=== PATIENT | female | born 1945 | race Caucasian/White ===

== ENCOUNTER 2024-06-19 08:35 | Day surgery (SDC) | payer MEDICARE, SELFPAY ==
[2024-06-15 13:15] VITALS: BMI 28.1
--- NOTE | 2024-06-16 09:30 | HO.ANESPROP2 ---
Documented by User: Ludivina Cleveland NP 06/16/24 09:30 HPI - Anesthesia Eval Consult details Narrative: 79yo F for Colonoscopy PMFSH Past Medical History Medical History IBS (irritable bowel syndrome) Asthma Gout Raynaud's syndrome Acne rosacea Glaucoma Hyperlipidemia HTN (hypertension) Surgical History Surgical History Hx of bilateral cataract extraction Hx of removal of cyst H/O colonoscopy Social History Social History Are you a primary small animal caretaker to a significant other at home: No Do you presently have visiting nurse or other home services: No Patient Tobacco Use Status: Former Tobacco user Have you been hit, kicked, punched, or otherwise hurt by someone within the past year? If so, by whom?: No Are you DNR?: No Advance Directives: No Advance Directives Information Provided: Yes Recently lost weight without trying: No Nutrition Risks: No Nutritional Risk Meds Allergies Allergy/AdvReac Type Severity Reaction Status Date / Time aspirin Allergy Unknown watery, Verified 06/19/24 09:12 itchy eyes, wheezing NSAIDS Allergy Unknown watery, Uncoded 06/19/24 09:12 itchy eyes, wheezing yellow dye #5 Allergy Unknown watery Uncoded 06/19/24 09:12 itchy eyes, wheezing Home Medications ?Medication ?Instructions ?Recorded ?Confirmed ?Last Taken ?Type allopurinol 100 mg tablet 100 mg PO DAILY 06/15/24 06/15/24 Unknown History amlodipine 10 mg tablet 5 mg PO DAILY 06/15/24 06/15/24 Unknown History budesonide-formoterol HFA 80 1 inh inhalation Q4-6H PRN 06/15/24 06/15/24 Unknown History mcg-4.5 mcg/actuation aerosol Shortness Of Breath Or Wheezing inhaler (Symbicort) cetirizine 10 mg tablet 10 mg PO DAILY 06/15/24 06/15/24 Unknown History cholecalciferol (vitamin D3) 25 25 mcg PO DAILY 06/15/24 06/15/24 Unknown History mcg (1,000 unit) capsule (Vitamin D3) fluticasone propionate 50 1 spray intranasal DAILY 06/15/24 06/15/24 Unknown History mcg/actuation nasal spray,suspension hydrocodone bitartrate 10 mg 10 mg PO Q12H PRN Pain 06/15/24 06/15/24 Unknown History capsule, oral only, extended rel 12 hr latanoprost 0.005 % eye drops 1 drp ophthalmic (eye) QPM 06/15/24 06/15/24 Unknown History levothyroxine 50 mcg tablet 50 mcg PO DAILY 06/15/24 06/15/24 Unknown History methylcellulose (laxative) 500 mg 2,000 mg PO DAILY PRN Constipation 06/15/24 06/15/24 Unknown History tablet (Citrucel) metronidazole 0.75 % topical cream 1 appl topical BID PRN Skin 06/15/24 06/15/24 Unknown History Irritation simvastatin 20 mg tablet 20 mg PO BEDTIME 06/15/24 06/15/24 Unknown History timolol maleate 0.5 % eye drops 1 drp ophthalmic (eye) BID 06/15/24 06/15/24 Unknown History valsartan 160 mg tablet 160 mg PO DAILY 06/15/24 06/15/24 06/19/24 History Exam Height,Weight and Vital Signs: Height 5 ft 4 in Weight 74.389 kg Assessment and Plan Assessment Anesthesia Assessment: Chart Reviewed Documented by User: Nedra Sanchez MD 06/19/24 10:37 [facility] Past Medical History Medical History IBS (irritable bowel syndrome) Asthma Gout Raynaud's syndrome Acne rosacea Glaucoma Hyperlipidemia HTN (hypertension) Family History Family history of problems with anesthesia: No Surgical History Surgical History Hx of bilateral cataract extraction Hx of removal of cyst H/O colonoscopy History of Problems with Anesthesia: No Social History Social History Are you a primary small animal caretaker to a significant other at home: No Do you presently have visiting nurse or other home services: No Patient Tobacco Use Status: Former Tobacco user Have you been hit, kicked, punched, or otherwise hurt by someone within the past year? If so, by whom?: No Are you DNR?: No Advance Directives: No Advance Directives Information Provided: Yes Recently lost weight without trying: No Nutrition Risks: No Nutritional Risk Meds Allergies Allergy/AdvReac Type Severity Reaction Status Date / Time aspirin Allergy Unknown watery, Verified 06/19/24 09:12 itchy eyes, wheezing NSAIDS Allergy Unknown watery, Uncoded 06/19/24 09:12 itchy eyes, wheezing yellow dye #5 Allergy Unknown watery Uncoded 06/19/24 09:12 itchy eyes, wheezing Home Medications ?Medication ?Instructions ?Recorded ?Confirmed ?Last Taken ?Type allopurinol 100 mg tablet 100 mg PO DAILY 06/15/24 06/15/24 Unknown History amlodipine 10 mg tablet 5 mg PO DAILY 06/15/24 06/15/24 Unknown History budesonide-formoterol HFA 80 1 inh inhalation Q4-6H PRN 06/15/24 06/15/24 Unknown History mcg-4.5 mcg/actuation aerosol Shortness Of Breath Or Wheezing inhaler (Symbicort) cetirizine 10 mg tablet 10 mg PO DAILY 06/15/24 06/15/24 Unknown History cholecalciferol (vitamin D3) 25 25 mcg PO DAILY 06/15/24 06/15/24 Unknown History mcg (1,000 unit) capsule (Vitamin D3) fluticasone propionate 50 1 spray intranasal DAILY 06/15/24 06/15/24 Unknown History mcg/actuation nasal spray,suspension hydrocodone bitartrate 10 mg 10 mg PO Q12H PRN Pain 06/15/24 06/15/24 Unknown History capsule, oral only, extended rel 12 hr latanoprost 0.005 % eye drops 1 drp ophthalmic (eye) QPM 06/15/24 06/15/24 Unknown History levothyroxine 50 mcg tablet 50 mcg PO DAILY 06/15/24 06/15/24 Unknown History methylcellulose (laxative) 500 mg 2,000 mg PO DAILY PRN Constipation 06/15/24 06/15/24 Unknown History tablet (Citrucel) metronidazole 0.75 % topical cream 1 appl topical BID PRN Skin 06/15/24 06/15/24 Unknown History Irritation simvastatin 20 mg tablet 20 mg PO BEDTIME 06/15/24 06/15/24 Unknown History timolol maleate 0.5 % eye drops 1 drp ophthalmic (eye) BID 06/15/24 06/15/24 Unknown History valsartan 160 mg tablet 160 mg PO DAILY 06/15/24 06/15/24 06/19/24 History Exam Airway Mallampati Class: II TM Dist: >3cm Neck ROM: Full Heart: rrrt Lungs: cta Assessment and Plan Assessment Anesthesia Assessment: Anesthesia Plan Discussed Final Anesthetic Review Family History of Problems with Anesthesia: No History of Problems with Anesthesia: No NPO: Yes ASA Class: III Final Preanesthetic Review: No Changes in Pt Med Stat, Meds/Allgs Chart Reviewed, Consent Obtained/Reviewed and Anes Risks/Benef Reviewed Patient Risk: Intermediate Procedure Risk: Low Anesthetic Plan Anesthetic Plan: MAC: Disposition: Standard PACU
--- OUTSIDE RECORDS SUMMARY | 2024-06-19 08:40 | XMS_ITS | Continuity of Care Document ---
Author Organization [facility] Fady lt Address [address] [place] [address]- Care Team Providers Care Vessel Engineer Name Role Phone Shauna FUENTES, Nicolas Sawyer Primary Care Physician [phone] Encounter [facility] Date(s): 04/19/24 - 05/19/[address] [facility] Adult [address] [place] [address]- Encounter Type: Triage Allergies, Adverse Reactions, Alerts Substance Criticality Severity Reaction Reaction Severity Status aspirin Active NSAIDs 1, 2 Active 1ichy congesdted wheezing 2itchy/watery eyes nasal congestion Immunizations Given and Recorded Vaccine Date Status Refusal Reason SARS-CoV-2 mRNA ([id number]) vax 10/13/21 Recorded SARS-CoV-2 (COVID-19) mRNA BNT-162b2 vac 04/25/21 Recorded SARS-CoV-2 (COVID-19) mRNA BNT-162b2 vac 09/19/20 Recorded SARS-CoV-2 (COVID-19) mRNA BNT-162b2 vac 08/29/20 Recorded influenza virus vaccine, inactivated 03/24/21 Faisal rded influenza virus vaccine, inactivated 04/04/20 Give n influenza virus vaccine, inactivated 1 04/28/19 Gi moriah influenza virus vaccine, inactivated 03/23/17 Faisal rded influenza virus vaccine, inactivated 04/07/15 Faisal rded zoster vaccine, inactivated 08/31/18 Recorded zoster vaccine, inactivated 06/03/18 Recorded Influenza Virus Vaccine (oldterm) 04/06/18 Recorde d pneumococcal 23-valent vaccine 07/05/14 Recorded pneumococcal 13-valent vaccine 07/05/13 Recorded 1Result Comment: [id number] Medications allopurinol 100 mg oral tablet 100 mg, 1, tablet, By Mouth, Daily, # 30 tablet, Refills 0, Maintenance, 12/16/20 9:00:00 AM EDT, Partial fill upon patient request if the prescription is for a schedule II opioid drug. Start Date: 12/16/20 Status: Ordered Quantity: 30.0 Unit: tablet Repeat number: 1 amLODIPine 10 mg oral tablet 1 tablet, By Mouth, Daily at bedtime, # 90 tablet, 3 Refills, Maintenance, 12/31/23 6:24:00 AM EDT, [facility], 159.2, cm, 11/10/23 12:28:00 EDT, Height Start Date: 12/31/23 Status: Ordered Quantity: 90.0 Unit: tablet Repeat number: 4 Flonase 50 mcg/inh nasal spray 2 sprays, Nares, Both, Daily in AM, # 3 each, 3 Refills, Maintenance, 05/30/19 2:46:44 PM EST, Nasal [place], [facility], 2 sprays Nares, Both Daily in AM,x90 days Start Date: 05/30/19 Stop Date: 05/24/20 Status: Ordered Quantity: 3.0 Unit: each Repeat number: 4 latanoprost 0.005% ophthalmic solution 1 drops, Eyes, Both, Daily at bedtime, # 3 mL, 0 Refills, Maintenance, 10/18/18 10:58:05 AM EDT, Ophth Solution Start Date: 10/18/18 Status: Ordered Quantity: 3.0 Unit: mL Repeat number: 1 levothyroxine 0.05 mg oral tablet 1 tablet, By Mouth, Daily, # 90 tablet, 3 Refills, 08/09/23 1:49:00 PM EST, [facility], 159.2, cm, 08/09/23 13:24:00 EST, Height Start Date: 08/09/23 Status: Ordered Quantity: 90.0 Unit: tablet Repeat number: 4 metroNIDAZOLE 0.75% topical cream 1 applicator, Topically, 2 times a day, # 45 Gm, 3 Refills, Maintenance, 10/13/19 11:39:14 AM EDT, Cream, [facility], 1 applicator Topically 2 times a day,x90 days Start Date: 10/13/19 Stop Date: 10/07/20 Status: Ordered Quantity: 45.0 Unit: g Repeat number: 4 simvastatin 20 mg oral tablet 1, tablet, By Mouth, Daily at bedtime, # 90 tablet, Refills 3, Tot. Refills 3, 08/09/23 1:49:00 PM EST, Route to Pharmacy Electronically, [facility], 159.2, cm, 08/09/23 13:24:00 EST, Height Start Date: 08/09/23 Status: Ordered Quantity: 90.0 Unit: tablet Repeat number: 4 Timolol Maleate (Eqv-Timoptic) 0.5% ophthalmic solution 0 Refills, Maintenance, 07/08/20 12:43:00 PM EST, Partial fill upon patient request if the prescription is for a schedule II opioid drug. Start Date: 07/08/20 Status: Ordered Repeat number: 1 valsartan 160 mg oral tablet 1, tablet, By Mouth, Daily, # 90 tablet, Refills 3, Tot. Refills 3, 08/09/23 1:48:00 PM EST, Route toPharmacy Electronically, [facility], 159.2, cm, 08/09/23 13:24:00 EST, Height Start Date: 08/09/23 Status: Ordered Quantity: 90.0 Unit: tablet Repeat number: 4 Vitamin D3 1000 intl units oral capsule 1 capsule = 25 mcg, By Mouth, Daily, 0 Refills, Maintenance, 02/05/22 10:56:00 AM EDT, Partial fill upon patient request if the prescription is for a schedule II opioid drug. Start Date: 02/05/22 Status: Ordered Repeat number: 1 Problem List Condition Confirmation Course Effective Dates Status Health Status Informant Chronic rhinitis Confirmed Active Sigmoid diverticulosis colonoscopy Confirmed Active Glaucoma Confirmed Active Gout, chronic/rheumatology Confirmed 09/27/20 Active Hypercalcemia normal 24 hr urine calcium/PER endocrinology ? HYPERPARATHYROIDISM Confirmed Active Hyperlipidemia Confirmed Active Hypertension Confirmed Active Hypothyroid Confirmed Active Impaired fasting glucose Confirmed Active IBS (irritable bowel syndrome) Confirmed Active Mild persistent stable asthma high eos Confirmed Active Osteoarthritis Confirmed Active Skin photosensitivity Confirmed Active Post-nasal drip Confirmed Active Raynaud disease Confirmed Active Rosacea Confirmed Active Social History Social History Type Response Smoking Status Former smoker, quit more than 30 days ago; Other: SMOK[employer]GE; entered on: 02/22/20 Sex Sex Representation Female (finding) Patient Care team information Care Team Personnel Name: Nicolas Villatoro MD Position: [facility] Physician - Primary Care Member Role: PCP Address: [address] [place] [address]- Telecom: Care Team Related Persons Name: JOHNNIE MISHRA Insurance Providers Guarantor name: RANJANA MISHRA Health Plan Information #: 1 Payer: MEDICARE PART B OUTPT Member Number: NA Policy Number: NA Group Number: NA Health Plan Information #: 2 Payer: MEDEX Member Number: NA Policy Number: NA Group Number: NA
--- OUTSIDE RECORDS SUMMARY | 2024-06-19 08:40 | XMS_ITS | Continuity of Care Document ---
Author Organization [facility] Fady lt Address [address] [place] [address]- Care Team Providers Care Metal Building Assembler Name Role Phone Nicolas Villatoro MD Primary Care Physician [phone] [id number] - [facility]29[facility] Adult [address] [place] [address]- Attending Physician: Nicolas Villatoro MD Encounter Type: Office Visit Allergies, Adverse Reactions, Alerts Substance Criticality Severity Reaction Reaction Severity Status aspirin Active NSAIDs 1, 2 Active 1ichy congesdted wheezing 2itchy/watery eyes nasal congestion Immunizations Given and Recorded Vaccine Date Status Refusal Reason SARS-CoV-2 mRNA ([id number]) vax 10/13/21 Recorded SARS-CoV-2 (COVID-19) mRNA BNT-162b2 [...] pneumococcal 13-valent vaccine 07/05/13 Recorded 1Result Comment: [id number] Medications allopurinol 100 mg oral tablet 100 [...] 3 Refills, Maintenance, 12/31/23 6:24:00 AM EDT, [facility], 159.2, cm, 11/10/23 12:28:00 EDT, Height Start Date: 12/31/23 Status: Ordered Quantity: 90.0 Unit: tablet Repeat number: 4 Flonase 50 mcg/inh nasal spray 2 sprays, Nares, Both, Daily in AM, # 3 each, 3 Refills, Maintenance, 05/30/19 2:46:44 PM EST, Nasal [place], [facility], 2 sprays Nares, Both Daily in [...] tablet, 3 Refills, 08/09/23 1:49:00 PM EST, [facility], 159.2, cm, 08/09/23 13:24:00 EST, Height Start Date: 08/09/23 Status: Ordered Quantity: 90.0 Unit: tablet Repeat number: 4 metroNIDAZOLE 0.75% topical cream 1 applicator, Topically, 2 times a day, # 45 Gm, 3 Refills, Maintenance, 10/13/19 11:39:14 AM EDT, Cream, [facility], 1 applicator Topically 2 times a day,x90 days Start Date: 10/13/19 Stop Date: 10/07/20 Status: Ordered Quantity: 45.0 Unit: g Repeat number: 4 simvastatin 20 mg oral tablet 1, tablet, By Mouth, Daily at bedtime, # 90 tablet, Refills 3, Tot. Refills 3, 08/09/23 1:49:00 PM EST, Route to Pharmacy Electronically, [facility], 159.2, cm, 08/09/23 13:24:00 EST, Height [...] 08/09/23 1:48:00 PM EST, Route toPharmacy Electronically, [facility], 159.2, cm, 08/09/23 13:24:00 EST, Height [...] Raynaud disease Confirmed Active Rosacea Confirmed Active Vital Signs Most recent to oldest [Reference Range]: 1 2 Height 159.2 cm (05/22/24 4:51 PM) 159.2 cm (05/22/24 4:46 PM) Weight 75.0 kg (05/22/24 4:46 PM) Oxygen Saturation [94-100 %] 97 % (05/22/24 4:46 PM) Pulse Rate [55-90 bpm] 70 bpm (05/22/24 4:46 PM) Body Mass Index [18.5-24.99 kg/m2] 29.59 kg/m2 *H* (05/22/24 4:46 PM) Blood Pressure [90-138/55-84 mm Hg] 139/ 71mm Hg *H* (05/22/24 4:51 PM) 149/65mm Hg *H* (05/22/24 4:46 PM) Mode of Delivery (Oxygen) Room air (05/22/24 4:46 PM) Blood pressure sites Arm, left (05/22/24 4:51 PM) Arm, left (05/22/24 4:46 PM) Weight Obtained Via Standing scale (05/22/24 4:46 PM) Social History Social History Type Response Smoking Status Former smoker, quit more than 30 days ago; Other: SMOKED [employer]LEGE; entered on: 02/22/20 Sex Sex Representation Female (finding) Patient Care team information Care Team Personnel Name: Shauna FUENTES, Nicolas Sawyer Position: [facility] Physician - Primary Care Member Role: PCP Address: [address] [place] [id number] Telecom: Care Team Related Persons Name: JOHNNIE MISHRA Insurance Providers Guarantor name: RANJANA MISHRA Health Plan Information #: 2 Payer: MEDEX Member Number: [id number] Policy Number: NA Group Number: NA Health Plan Information #: 1 Payer: MEDICARE PART B OUTPT Member Number: [id number] Policy Number: NA Group Number: NA
--- OUTSIDE RECORDS SUMMARY | 2024-06-19 08:40 | XMS_ITS ---
Author Organization [facility] Address [address] [place] [id number] Care Team Providers Care Fish Hatchery Inspector Name Role Phone Nicolas Villatoro Primary Care Provider Royer Christopher Unavailable [phone] ALLERGIES Allergen (clinical drug ingredient) Drug/Non Drug Allergy documented on EMR Reaction Allergy Type Onset Date Status ibuprofen Ibuprofen Unknown Drug Allergy Active aspirin Aspirin Unknown Drug Allergy Active #5 yellow dye (uncoded) Unknown Allergy Active Non-steroidal anti-inflammatory agent (FN) NSAIDS (uncoded) Unknown Allergy Active REASON FOR VISIT Patient presents today for a colon screening, ibs MEDICATIONS Medication SIG (Take, Route, Frequency, Duration) Notes Start Date End Date Status Levothyroxine Sodium 50 MCG 1 capsule Orally Once a day Active Prednisone 40 1 tab Oral as needed Not-Taking metroNIDAZOLE 0.75 % 1 application to affected area Externally prn Active Citrucel 500 MG 4 tablets as needed Orally prn Active amLODIPine Besylate 5 MG 1 tablet Orally Once a day Active Flonase 50 MCG/ACT 1 spray in each nostril Nasally Once a day Active Fluocinolone Acetonide 0.01 % 5 drops into affected ear Otic Twice a day/prn Active Timolol Maleate 0.5 % 1 tablet with food Ophthalmic Twice a day Active Valsartan 160 MG 1 tablet Orally Once a day for 30 day(s) Active Vitamin D (Cholecalciferol) 25 MCG (1000 UT) 1 capsule Orally Once a day for 30 day(s) Active Latanoprost 0.005 % 1 drop into affected eye in the evening Ophthalmic Once a day Active Simvastatin 20 MG 1 tablet in the evening Orally Once a day Active Allopurinol 100 MG 1 tablet Orally Once a day for 30 day(s) Active HYDROcodone Bitartrate ER 10 MG 1 capsule Orally every 12 hrs as needed Active Cetirizine HCl 10 MG 1 tablet Orally Onc e a day for 30 day(s) Active Symbicort 80-4.5 MCG/ACT 1 puff as needed Inhalation every 4 hrs Active PROBLEMS Problem Type ICD Code Onset Dates Problem Status W/U Status Risk SNOMED Code Notes Problem Irritable bowel syndrome with diarrhea (K58.0) Active confirmed Irritable bowel syndrome with diarrhea (382482290) VITAL SIGNS BMI 28.21 kg/m2 03/08/2024 Blood pressure systolic 000 mm Hg 03/08/20 24 Blood pressure diastolic 00 mm Hg 024 Height 64 in 03/08/2024 Temperature 97.3 degrees Fahrenheit 03/08/20 24 Weight 164 lb 6 oz lbs 03/08/2024 Encounters Encounter Location Date Provider Diagnosis [facility] [address] [facility] [address] [place] [address] 03/08/2024 Royer Lino History of adenomato us polyp of colon Z86.010 ; Irritable bowel syndrome with diarrhea K58.0 and Encounter for screening for malignant neoplasm of colon Z12.11 ASSESSMENTS Encounter Date Diagnosis Assessment Notes Treatment Notes Treatment Clinical Notes 03/08/2024 History of adenomatous polyp of colon (ICD-10 - Z86.010) 03/08/2024 Irritable bowel syndrome with diarrhea (ICD-10 - K58.0) Continue Citrucel once or twice a day and watch the diet as far as the Irritable Bowel Syndome is concerned. Use over the counter Imodium as needed for diarrhea 03/08/2024 Encounter for screening for malignant neoplasm of colon (ICD-10 - Z12.11) PLAN OF TREATMENT Treatment Notes Assessment Notes Irritable bowel syndrome with diarrhea Continue Citrucel once or twice a day and watch the diet as far as the Irritable Bowel Syndome is concerned. Use over the counter Imodium as needed for diarrhea Future Test Test Name Order Date COLONOSCOPY 03/08/2024 Next Appt Details Follow Up: prn, Reason: Provider Name:Royer Lino , 06/19/2024 10:30:00 AM, [address] [place] [address] , [place], [place], [phone], Progress Notes * Examination Category Sub-Category Detail Notes General Examination GENERAL APPEARANCE: pleasant , well nourished, well developed, in no acute distress HEAD: EYES: sclera non-icteric EARS: NOSE: THROAT: NECK/THYROID: no cervical lymphade nopathy, neck supple HEART: S1, S2 normal CHEST: LUNGS: clear to auscultatio n bilaterally ABDOMEN: normal bowel sounds, no guarding or rigidity, no guarding or rigidity, no masses palpable, soft, nontender, nondistended NEUROLOGIC: alert and oriented SKIN: nonjaundiced, no spi heath angiomata EXTREMITIES: no edema PERIPHERAL PULSES: BACK: BREASTS: MUSCULOSKELETAL: MALE GENITOURINARY: LYMPH NODES: RECTAL EXAM: FEMALE GENITOURINARY: ORAL CAVITY: mucosa moist
--- OUTSIDE RECORDS SUMMARY | 2024-06-19 08:40 | XMS_ITS ---
Author Organization [facility] Address [address] [place] [address] Care Team Providers Care Appraiser Art Name Role Phone Nicolas Villatoro Primary Care Provider Royer Chritsopher [phone] REASON FOR VISIT screening,hx polyps Encounters Encounter Location Date Provider Diagnosis [facility] Outpatient [address] [place] [id number] 06/19/2024 Royer Lino PLAN OF TREATMENT Next Appt Details Provider Name:Royer Lino , 06/19/2024 10:30:00 AM, [address] [place] [address], [phone],
--- OUTSIDE RECORDS SUMMARY | 2024-06-19 08:40 | XMS_ITS | Continuity of Care Document ---
Author Organization [facility] Address [address] [place] [address]- Care Team Providers Care Director Dietetics Department Name Role Phone Shauna FUENTES, Nicolas Sawyer Primary Care Physician Encounter [facility] Date(s): 05/15/24 - 06/14/24 [facility] [address] [place] [id number] Encounter Type: Triage Allergies, Adverse Reactions, Alerts Substance Criticality Severity Reaction Reaction Severity Status aspirin Active NSAIDs 1, 2 Active 1ichy congesdted wheezing 2itchy/watery eyes nasal congestion Immunizations Given and Recorded Vaccine Date Status Refusal Reason SARS-CoV-2 mRNA ([id number]-bfut-umrhc) vax 10/13/21 Recorded SARS-CoV-2 (COVID-19) mRNA BNT-162b2 [...] pneumococcal 13-valent vaccine 07/05/13 Recorded 1Result Comment: [id number] Medications allopurinol 100 mg oral tablet 100 [...] 3 Refills, Maintenance, 12/31/23 6:24:00 AM EDT, [facility], 159.2, cm, 11/10/23 12:28:00 EDT, Height Start Date: 12/31/23 Status: Ordered Quantity: 90.0 Unit: tablet Repeat number: 4 Flonase 50 mcg/inh nasal spray 2 sprays, Nares, Both, Daily in AM, # 3 each, 3 Refills, Maintenance, 05/30/19 2:46:44 PM EST, Nasal [place], [facility], 2 sprays Nares, Both Daily in [...] tablet, 3 Refills, 08/09/23 1:49:00 PM EST, [facility], 159.2, cm, 08/09/23 13:24:00 EST, Height Start Date: 08/09/23 Status: Ordered Quantity: 90.0 Unit: tablet Repeat number: 4 metroNIDAZOLE 0.75% topical cream 1 applicator, Topically, 2 times a day, # 45 Gm, 3 Refills, Maintenance, 10/13/19 11:39:14 AM EDT, Cream, [facility], 1 applicator Topically 2 times a day,x90 days Start Date: 10/13/19 Stop Date: 10/07/20 Status: Ordered Quantity: 45.0 Unit: g Repeat number: 4 simvastatin 20 mg oral tablet 1, tablet, By Mouth, Daily at bedtime, # 90 tablet, Refills 3, Tot. Refills 3, 08/09/23 1:49:00 PM EST, Route to Pharmacy Electronically, [facility], 159.2, cm, 08/09/23 13:24:00 EST, Height [...] 08/09/23 1:48:00 PM EST, Route toPharmacy Electronically, [facility], 159.2, cm, 08/09/23 13:24:00 EST, Height [...] Team Personnel Name: Nicolas Villatoro MD Position: [facility] Physician - Primary Care Member Role: PCP Address: [address] [place] [address] Telecom: Care Team Related Persons Name: JOHNNIE MISHRA Insurance Providers Guarantor name: RANJANA MISHRA Health Plan Information #: 1 Payer: MEDICARE PART B OUTPT Member Number: NA Policy Number: NA Group Number: NA Health Plan Information #: 2 Payer: MEDEX Member Number: NA Policy Number: NA Group Number: NA
--- OUTSIDE RECORDS SUMMARY | 2024-06-19 08:40 | XMS_ITS | Continuity of Care Document ---
Author Organization [facility] Address [address] [place] [id number]- Care Team Providers Care Teacher Asst Name Role Phone Shauna FUENTES, Nicolas Sawyer Primary Care Physician Encounter [facility] Date(s): 05/05/24 - 06/04/24 [facility] [address] [place] [address] Encounter Type: Triage Allergies, Adverse Reactions, Alerts Substance Criticality Severity Reaction Reaction Severity Status aspirin Active NSAIDs 1, 2 Active 1ichy congesdted wheezing 2itchy/watery eyes nasal congestion Immunizations Given and Recorded Vaccine Date Status Refusal Reason SARS-CoV-2 mRNA ([id number]) vax 10/13/21 Recorded SARS-CoV-2 (COVID-19) mRNA BNT-162b2 [...] pneumococcal 13-valent vaccine 07/05/13 Recorded 1Result Comment: [id number] Medications allopurinol 100 mg oral tablet 100 [...] 3 Refills, Maintenance, 12/31/23 6:24:00 AM EDT, [facility], 159.2, cm, 11/10/23 12:28:00 EDT, Height Start Date: 12/31/23 Status: Ordered Quantity: 90.0 Unit: tablet Repeat number: 4 Flonase 50 mcg/inh nasal spray 2 sprays, Nares, Both, Daily in AM, # 3 each, 3 Refills, Maintenance, 05/30/19 2:46:44 PM EST, Nasal [place], [facility], 2 sprays Nares, Both Daily in [...] tablet, 3 Refills, 08/09/23 1:49:00 PM EST, [facility], 159.2, cm, 08/09/23 13:24:00 EST, Height Start Date: 08/09/23 Status: Ordered Quantity: 90.0 Unit: tablet Repeat number: 4 metroNIDAZOLE 0.75% topical cream 1 applicator, Topically, 2 times a day, # 45 Gm, 3 Refills, Maintenance, 10/13/19 11:39:14 AM EDT, Cream, [facility], 1 applicator Topically 2 times a day,x90 days Start Date: 10/13/19 Stop Date: 10/07/20 Status: Ordered Quantity: 45.0 Unit: g Repeat number: 4 simvastatin 20 mg oral tablet 1, tablet, By Mouth, Daily at bedtime, # 90 tablet, Refills 3, Tot. Refills 3, 08/09/23 1:49:00 PM EST, Route to Pharmacy Electronically, [facility], 159.2, cm, 08/09/23 13:24:00 EST, Height [...] 08/09/23 1:48:00 PM EST, Route toPharmacy Electronically, [facility], 159.2, cm, 08/09/23 13:24:00 EST, Height [...] Team Personnel Name: Nicolas Villatoro MD Position: [facility] Physician - Primary Care Member Role: PCP Address: [address] [place] [address]- Telecom: Care Team Related Persons Name: OJHNNIE MISHRA Insurance Providers Guarantor name: RANJANA MISHRA Health Plan Information #: 1 Payer: MEDICARE PART B OUTPT Member Number: NA Policy Number: NA Group Number: NA Health Plan Information #: 2 Payer: MEDEX Member Number: NA Policy Number: NA Group Number: NA
--- OUTSIDE RECORDS SUMMARY | 2024-06-19 08:41 | XMS_ITS | Patient Health Record ---
[facility] Address [address] [place] [address] Care Team Providers Care Plastic Production Machine Setter Name Role Phone Nicolas Villatoro MD Primary Care Provider Zak Avila Unavailable [phone] Allergies Allergen (clinical drug ingredient) Drug/Non Drug Allergy documented on EMR Reaction Allergy Type Onset Date Status yellow dye #5 (uncoded) congestion & wheezing Allergy Active ibuprofen Advil congestion & wheezing Drug Allergy Active aspirin Aspirin congestion & wheezing Drug Allergy Active nsaids congestion & wheezing Drug Allergy Active Reason For Referral No Information Medications Medication SIG (Take, Route, Frequency, Duration) Notes Start Date End Date Status Night Splint AFO - L1930 1 wear at rest for 30 days Active Allopurinol Active Valsartan Active Levothroid Active metroNIDAZOLE 0.75 % Once a day Unknown amLODIPine Besylate Active Fluocinolone Acetonide 0.01 % as needed Unknown Vitamin D Active Citrucel Unknown Symbicort Active Flonase as needed Unknown Prednisone Active Timolol Hemihydrate 0.5 % 1 drop into af fected eye Ophthalmic 2x a day Unknown Simvastatin 20 MG 1 tablet in the even ing Orally Once a day Active Latanoprost 0.005 % 1 drop into affected eye in the evening Ophthalmic Once a day Unknown Simvastatin 20 MG Orally Once a day Unknown Lisinopril 10 MG Orally Once a day Unknown Social History Tobacco Use: Social History Observation Description Date Details (start date - stop date) Former Smoker NA - NA Tobacco Use/Smoking Question Answer Notes Are you a: former smoker Alcohol Screen Question Answer Notes Did you have a drink containing alcohol in the p ast year? Yes Points 0 Interpretation Negative Tobacco use other than smoking: Question Answer Notes Are you an other tobacco user? No Problems Problem Type SNOMED Code ICD Code Onset Dates Problem Status W/U Status Risk Notes Problem Interstitial myositis (94984952) Interstitial myositis of right foot (M60.171) Active confirmed Vital Signs Height 5 ft 3 in in 07/13/2023 Weight 160 lbs 07/13/2023 BMI 28.34 kg/m2 07/13/2023 Encounters Encounter Location Date Provider Diagnosis [facility] [place] [address] [place] [address] 07/13/2023 Zak Gilbert Muscle cramp, nocturnal R25.2 and Plantar fasciitis of right foot M72.2 Assessments Encounter Date Diagnosis (ICD Code) Assessment Notes Treatment Notes Treatment Clinical Notes Section Notes 07/13/2023 Plantar fasciitis of right foot (ICD-10 - M72.2) 07/13/2023 Muscle cramp, nocturnal (ICD-10 - R25.2) Plan Of Treatment Pending Test Test Name Order Date X ray : Foot, right 3V 04/30/2023 Insurance Providers Payer Name Payer Address Payer Phone Subscriber Number Group Number Insured Name Patient Relationship to Insured Coverage Start Date Coverage End Date Medicare National [facility] [address] [facility] [address] [id number] Joanna Howard Self - patient is the insured [employer] [address] [place] [address] [phone] [id number] Joanna Howard Self - patient is the insured Medical (General) History Medical History History ICD Code Back,Hip,and Knee pain Cholesterol Glaucoma Gout High blood pressure Raynauds syndrome chronic sinusitis Measles Chicken pox Diarrhea, chronic Rosacea cyst Arthritis asthma Cataracts Mumps Surgical History Surgery Date(Month/Year) Cyst removal
--- OUTSIDE RECORDS SUMMARY | 2024-06-19 08:41 | XMS_ITS ---
Author Organization [facility] Address [address] [place] [address] Care Team Providers Care Leach Tank Tender Name Role Phone Nicolas Villatoro MD Primary Care Provider Unava Zak Ribeiro Unavailable [phone] Allergies Allergen (clinical drug ingredient) Drug/Non Drug Allergy documented on EMR Reaction Allergy Type Onset Date Status yellow dye #5 (uncoded) congestion & wheezing Allergy Active ibuprofen Advil congestion & wheezing Drug Allergy Active aspirin Aspirin congestion & wheezing Drug Allergy Active nsaids congestion & wheezing Drug Allergy Active REASON FOR VISIT Foot/Leg pain, Heel pain Medications Medication SIG (Take, Route, Frequency, Duration) Notes Start Date End Date Status metroNIDAZOLE 0.75 % Once a day Unknown Fluocinolone Acetonide 0.01 % as needed Unknown Citrucel Unknown Flonase as needed Unknown Timolol Hemihydrate 0.5 % 1 drop into af fected eye Ophthalmic 2x a day Unknown Allopurinol Active Latanoprost 0.005 % 1 drop into affected eye in the evening Ophthalmic Once a day Unknown Simvastatin 20 MG Orally Once a day Unknown Lisinopril 10 MG Orally Once a day Unknown Night Splint AFO - L1930 1 wear at rest for 30 days Active Valsartan Active Levothroid Active amLODIPine Besylate Active Vitamin D Active Symbicort Active Prednisone Active Simvastatin 20 MG 1 tablet in the even ing Orally Once a day Active Social History Tobacco Use: Social History Observation [...] Are you an other tobacco user? No Vital Signs Height 5 ft 3 in in 07/13/2023 Weight 160 lbs 07/13/2023 BMI 28.34 kg/m2 07/13/2023 Encounters Encounter Location Date Provider Diagnosis [facility] [place] [address] [place] [address] 07/13/2023 Zak Hunt Muscle cramp, nocturnal R25.2 and Plantar fasciitis of right foot M72.2 Assessments Encounter Date Diagnosis (ICD Code) Assessment Notes Treatment Notes Treatment Clinical Notes Section Notes 07/13/2023 Muscle cramp, nocturnal (ICD-10 - R25.2) 07/13/2023 Plantar fasciitis of right foot (ICD-10 - M72.2) Plan Of Treatment Next Appt Details Follow Up: prn, Reason: Progress Notes * Joanna HOWARD MDOB: 7 (78 yo F)Acc No.[id number]:07/13/2023 Progress Note Patient:?Joanna Howard Provider:?Zak Hunt DPM :1945???Age:78 Y???Sex:Female D ate:07/13/2023 Address:[address] [place] [address] Pcp:Nicolas Villatoro MD Subjective: * Chief Complaints: * ???Foot/Leg painHeel pain * HPI: ???Foot Pain:?Nature:?tightness, cramping, pulling, aching.?Location:?Foot, Leg , B/L.?Duration:?several weeks.?Onset:?sudden.?Course:?worse.?Aggrevated:?especially toward the end of the day/at rest/at night.?Heel pain:?Location:?Proximal plantar aspect of Heel, RIGHT.?Treatments:?rest/alter normal daily activity, change in shoes, Tylenol , stretching , massage , pre-fabricated orthoses , AFO-nightsplint.? * ROS:?General/Constitutional:?Nausea?denies.?Vomiting?denies.?Hunger Thirst?denies.?Loss appetite?denies.?Loss appetite?denies.?Chills?denies.?Fatigue?denies.?Fever?denies.?Night Sweats?admits.?Unexplained weight loss?denies.?Unexplained weight gain?denies.?HEENTM:?Dentures?denies.?Dizziness?denies.?Glasses/contacts?admits.?Retinopathy?de nies.?Blurred/double vision?denies.?TMJ?denies.?Discharge/drainage?denies.?Implants?denies.?Sore throat?denies.?Dental implants?denies.?Hard of hearing ?denies.?Difficulty chewing/swallowing/speaking?denies.?Nose bleeds?denies.?Sore mouth?denies.?Respiratory:?On Oxygen?denies.?Pneumonia/pleurisy?denies.?Pneumonia/pleurisy?denies.?Bronchitis? denies.?Bronchitis?denies.?Emphysema?denies.?Emphysema?denies.?Coughing?denies.? Cough blood?denies.?Shortness of breath?denies.?Wheezing?denies.?Cardiovascular:?Pacemaker?denies,?denies.?MVP?denies,?denies.?WPW?denies,?denies.?CHF?audrey es,?denies.?Heart attack?denies,?denies.?Septal defect?denies,?denies.?Rapid beat?denies,?denies.?Chest pain ?denies,?denies.?Atrial Fib.?denies,?denies.?Murmur/Palpitations?denies,?denies.?Gastrointestinal:?Hemorrhoids?denies,?denies.?Stomach/Abdominal pain?denies,?denies.?Dark blood stool?denies,?denies.?Irritable bowel ?admits,?admits.?Constipation?denies,?denies.?Diarrhea?denies,?denies.?Hematology:?Swelling?denies,?denies.?Clots?denies,?denies.?Varicose Veins?denies,?denies.?Bruising?denies,?denies.?Bleeding problem?denies,?denies.?Genitourinary:?Blood urine?denies,?denies.?Frequent/Painfu/urination/bladder control?denies,?denies.?Kidney stones?denies,?denies.?Infection (UTI)?denies,?denies.?Nephropathy?denies,?denies.?sex trans dis (STD)?denies,?denies.?Prostate?denies,?denies.?Musculoskeletal:?Hammertoes?denies,?denies.?Bunions?denies,?denies.?Back Pain?denies,?denies.?Muscle Cramps/ Resting?admits,?admits.?Muscle cramps / walking?denies,?denies.?Generalized aches and pains?denies,?denies.?Weakness?denies,?denies.?Integ.:?Milian?denies,?denies.?Scars?denies,?denies.?Corns/calluses?denies,?denies. ?Ingrown nails?denies,?denies.?Painful nails?denies,?denies.?Open Sores?denies,?denies.?Rashes?denies,?denies.?Neurologic:?Difficulty sleeping?denies,?denies.?Brain disorder?denies,?denies.?Numbness?denies,?denies.?Balance trouble?denies,?denies.?Confusion?denies,?denies.?Fainting/blackouts?denies,?den ies.?Tingling?denies,?denies.?Tremors?denies,?denies.? * Medical History:? * Surgical History:? Cyst michael yvonne * Hospitalization/Major Diagno stic Procedure:?Denies Past Hospitalization * Family History:?Mother: dece ased.?Father: .?Siblings: heart attack, diagnosed with Unspecified cerebral artery occlusion with cerebral infarction, Other malignant neoplasm of unspecified site, Diabetic - NIDDM, Unspecified essential hypertension, Unspecified heart disease.? * Social History:?Tobacco Use:?Tobacco Use/Smoking?Are you a:?former smoker ?Tobacco use other than smoking?Are you an other tobacco user??No ???Drugs/Alcohol:?Drugs?Have you used drugs other than those for medical reasons in the past 12 months??No ?Alcohol Screen?Did you have a drink containing alcohol in the past year??Yes ?Points?0 ?Interpretation?Negative ???Miscellaneous:?Caffeine: yes, decaf 2 cups. ?Children: yes. ?Exercise: walking, hiking & tennis. ?Marital status: . ?Occupation: retired teacher. * Medications:?TakingSimvastat in 20 MG Tablet 1 tablet in the evening Orally Once a dayPrednisone Symbicort Vitamin D amLODIPine Besylate Levothroid Valsartan Allopurinol Night Splint AFO - L1930 1 wear at restTaking Simvastatin 20 MG Tablet 1 tablet in the evening Orally Once a dayTaking Prednisone Taking Symbicort Taking Vitamin D Taking amLODIPine Besylate Taking Levothroid Taking Valsartan Taking Allopurinol Taking Night Splint AFO - L1930 1 wear at restUnknownLisinopril 10 MG Tablet Orally Once a daySimvastatin 20 MG Tablet Orally Once a dayLatanoprost 0.005 % Solution 1 drop into affected eye in the evening Ophthalmic Once a dayTimolol Hemihydrate 0.5 % Solution 1 drop into affected eye Ophthalmic 2x a dayFlonase as neededCitrucel Fluocinolone Acetonide 0.01 % as neededmetroNIDAZOLE 0.75 % Once a dayMedication List reviewed and reconciled with the patientUnknown Lisinopril 10 MG Tablet Orally Once a dayUnknown Simvastatin 20 MG Tablet Orally Once a dayUnknown Latanoprost 0.005 % Solution 1 drop into affected eye in the evening Ophthalmic Once a dayUnknown Timolol Hemihydrate 0.5 % Solution 1 drop into affected eye Ophthalmic 2x a dayUnknown Flonase as neededUnknown Citrucel Unknown Fluocinolone Acetonide 0.01 % as neededUnknown metroNIDAZOLE 0.75 % Once a dayMedication List reviewed and reconciled with the patient * Allergies:?Aspirin: congesti on & wheezingnsaids: congestion & wheezingAdvil: congestion & wheezingyellow dye #5: congestion & wheezingyes[Allergies Verified] Objective: * Vitals:?Ht: 5 ft 3 in, Wt:16 0, BMI:28.34, Shoe size:7.5. * Examination: ???Orthopedic: ?FOOT MORPHOLOGY:? Pain in Achilles and intrinsic foot musculature, Decreased Ankle joint dorsiflexion ROM, knee extended, B/L.?Heel Pain: ?INSPECTION:?States approximately 90-100% LESS, Pain on Palpation to Plantar Fascia med. and central bands, intrinsic musc., infra-calcaneal bursa, and med calc tubercle , RIGHT foot.? Assessment: * Assessment: 1.?Plantar fasciitis of righ t foot - M72.2, Acute problem, Stable (1=3),Response to treatment - Improvement?2.?Muscle cramp, nocturnal - R25.2 (Primary), Acute problem, Uncomplicated (3)? Plan: * Treatment: * Procedure Codes:? * Preventive Medicine:? ??Counseling:?Discussion:?-13: Office or other outpatient visit for the evaluation and management of an established patient, which required a medically appropriate history and/or examination and LOW level of DECISION MAKING for: 1 STABLE ACUTE UNCOMPLICATED PROBLEM, 2 OR MORE MINOR PROBLEMS, OR 1 STABLE CHRONIC PROBLEM, THAT POSE(S) A LOW RISK FOR MORBIDITY/MORTALITY. The visit on the day of the encounter encompassed interpreting the data and educating the patient as to the nature of their condition, treatment options available according to their individual PMH, meds, allergies, and overall health/living conditions, as well as any potential risks or complications that may occur from a failure to adhere to, and participate in, the recommended course of therapy. The discussion included a complete verbal, and/or written explanation of the examination results, any x-rays taken, the proposed diagnosis, and outline of the treatment plan. A schedule for future care needs was also explained. The patient verbalized an understanding of the instructions at this time and agreed to be an active participant in their treatment. If the patient should think of any questions or concerns after the visit, I have encouraged the patient to call the office.?Heel pain:?Discussed other tx options for the patients condition, Given recent successful results to treatment, the patient wishes to continue with the present plan for their condition.?Myositis/Tendonitis:?NIGHT CRAMPS: I explained to the patient the possible etiologies of their nightly muscle cramps, including, but not limited to: foot type, shoegear, activity level/exercise routine, dehydration due to insufficient fluid intake, caffeine, or alcohol, medications such as diuretics or statins, mineral or electrolyte deficiencies in K, Mg or Ca, nerve compression, or other metabolic/neurologic disease states. We discussed the risks/benefits of the different treatment options for their painful condition including: No treatment at all, proper hydraton, proper metabolite/electrolite consumption, stretching, massage, heat, proper shoegear/arch support, Vit B12/Mg/CoQ-10 supplementation, Tonic water infused with quinine (diet if DM), pickle juice (to be used with caution w/ hx of HTN), coconut water, and adjusting the sleeping position/untuck bedding to decrease foot pressure. The advantages and disadvantages of each option were discussed and the patient's questions re: shoegear, hydration, variuos foods beneficial to prevent night cramps (bananas, pickles, potatoes), electrolyte supplementation, and consistency in home treatment regimens for optimal success, were answered to their verbally confirmed satisfaction.? * Follow Up:?prn * Images: * Sign off status: Completed true * Provider:?Zak Hunt DPM Date:?2023 Generated for Min kim/Katiuska/Anika on:?06/19/2024 08:40 AM EST History and Physical Notes * HPI (History of Present Illness) Category Sub-Category Detail Notes Category Not es Heel pain Location: Proximal plantar aspect of H eel, RIGHT Treatments: rest/alter normal da linda activity, change in shoes, Tylenol , stretching , massage , pre-fabricated orthoses , AFO-nightsplint Foot Pain Nature: tightness, cramping, pulling , aching Location: Foot, Leg , B/L Duration: several weeks Onset: sudden Course: worse Aggravated: especially toward th e end of the day/at rest/at night Examination Category Sub-Category Detail Notes Category Not es Orthopedic FOOT MORPHOLOGY: Pain in [place] s and intrinsic foot musculature, Decreased Ankle joint dorsiflexion ROM, knee extended, B/L Heel Pain INSPECTION: States approxima tely 90-100% LESS, Pain on Palpation to Plantar Fascia med. and central bands, intrinsic musc., infra-calcaneal bursa, and med calc tubercle , RIGHT foot
--- OUTSIDE RECORDS SUMMARY | 2024-06-19 08:41 | XMS_ITS ---
Author Organization [facility] Address [address] [place] [address] Care Team Providers Care Yarn Dumper Name Role Phone Nicolas Villatoro MD Primary Care Provider Unava ilZak Ann Unavailable [phone] REASON FOR VISIT buy comfort plus with met pad w6-7.5 Encounters Encounter Location Date Provider Diagnosis [facility] [address] [place] [address] 04/30/2023 Zak Hunt Plan Of Treatment No Information Progress Notes * Joanna HOWARD MDOB: 7 (77 yo F)Acc No.[id number]:04/30/2023 Patient:?Lee Joanna Hardin :1945???Age:77 Y???Sex:Female Address:[address] [place] [id number] * true * Date:? Generated for Printi ng/Kyleg/eTransmitting on:?06/19/2024 08:40 AM EST
--- OUTSIDE RECORDS SUMMARY | 2024-06-19 08:41 | XMS_ITS ---
Author Organization [facility] Address [address] [place] [address] Care Team Providers Care [employer] Teacher Name Role Phone Nicolas Villatoro MD Primary Care Provider Unava Zak Ribeiro Unavailable [phone] Allergies Allergen (clinical drug ingredient) Drug/Non Drug Allergy documented on EMR Reaction Allergy Type Onset Date Status yellow dye #5 (uncoded) congestion & wheezing Allergy Active ibuprofen Advil congestion & wheezing Drug Allergy Active aspirin Aspirin congestion & wheezing Drug Allergy Active nsaids congestion & wheezing Drug Allergy Active REASON FOR VISIT Heel pain Medications Medication SIG (Take, Route, Frequency, Duration) Notes Start Date End Date Status Timolol Hemihydrate 0.5 % 1 drop into af fected eye Ophthalmic 2x a day Unknown metroNIDAZOLE 0.75 % Once a day Unknown Fluocinolone Acetonide 0.01 % as needed Unknown Citrucel Unknown Flonase as needed Unknown Valsartan Active Allopurinol Active Latanoprost 0.005 % 1 drop into affected eye in the evening Ophthalmic Once a day Unknown Simvastatin 20 MG Orally Once a day Unknown Lisinopril 10 MG Orally Once a day Unknown Levothroid Active amLODIPine Besylate Active Vitamin D Active Symbicort Active Prednisone Active Simvastatin 20 MG 1 tablet in the even ing Orally Once a day Active Night Splint AFO - L1930 1 wear at rest for 30 days Active Social History Tobacco Use: Social History [...] W/U Status Risk Notes Problem Interstitial myositis (89063031) Interstitial myositis of right foot (M60.171) Active confirmed Vital Signs Height 5 ft 3 in in 04/30/2023 Weight 160 lbs 04/30/2023 BMI 28.34 kg/m2 04/30/2023 Encounters Encounter Location Date Provider Diagnosis [facility] [address] [place] [address] 04/30/2023 Zak Gilbert Pain in right foot M79.671 ; Plantar fasciitis of right foot M72.2 ; Calcaneal spur, right foot M77.31 ; Interstitial myositis of right foot M60.171 and Bursitis of right foot M77.51 Assessments Encounter Date Diagnosis (ICD Code) Assessment Notes Treatment Notes Treatment Clinical Notes Section Notes 04/30/2023 Pain in right foot (ICD-10 - M79.671) 04/30/2023 Plantar fasciitis of right foot (ICD-10 - M72.2) Patient Educated with: HEEL CORD STRETCHES.pdf (HEEL CORD STRETCHES.pdf) Patient Educated with: RICE THERAPY.pdf (RICE THERAPY.pdf) 04/30/2023 Calcaneal spur, right foot (ICD-10 - M77.31) 04/30/2023 Interstitial myositis of right foot (ICD-10 - M60.171) 04/30/2023 Bursitis of right foot (ICD-10 - M77.51) Plan Of Treatment Medication Medication Name Sig Start Date Stop Date Notes Night Splint AFO - L1930 1 wear at rest for 30 days Treatment Notes Assessment Notes Plantar fasciitis of right foot Patient Educated with: HEEL CORD STRETCHES.pdf (HEEL CORD STRETCHES.pdf) Patient Educated with: RICE THERAPY.pdf (RICE THERAPY.pdf) Pending Test Test Name Order Date X ray : Foot, right 3V 04/30/2023 Next Appt Details Follow Up: 4 Weeks, Reason: Progress Notes * Joanna HOWARD MDOB: 7 (77 yo F)Acc No.[id number]:04/30/2023 Progress Notes Patient:?Joanna Howard Provider:?Zak Hunt DPM :1945???Age:77 Y???Sex:Female D ate:04/30/2023 Address:[address] [place] [address] [place], [id number] Pcp:Nicolas Villatoro MD Subjective: * Chief Complaints: * ???Heel pain * HPI: ???Heel pain:?Location:?Proximal plantar aspect of Heel, RIGHT.?Duration:?3 months.?Onset/Cause:?unknown , denies trauma.?Course:?worse.?Aggrevated:?standing, walking, walking first thing in the morning/after rest.?Treatments:?rest , change in shoes, Tylenol , stretching.? * ROS:?General/Constitutional:?Nausea?denies.?Vomiting?denies.?Hunger Thirst?denies.?Loss appetite?denies.?Chills?denies.?Fatigue?denies.?Fever?denies.?Night Sweats?admits.?Unexplained weight loss?denies.?Unexplained weight gain?denies.?HEENTM:?Dentures?denies.?Dizziness?denies.?Glasses/contacts?admits.?Retinopathy?de nies.?Blurred/double vision?denies.?TMJ?denies.?Discharge/drainage?denies.?Implants?denies.?Sore throat?denies.?Dental implants?denies.?Hard of hearing ?denies.?Difficulty chewing/swallowing/speaking?denies.?Nose bleeds?denies.?Sore mouth?denies.?Respiratory:?On Oxygen?denies.?Pneumonia/pleurisy?denies.?Bronchitis?denies.?Emphysema?denies.?C oughing?denies.?Cough blood?denies.?Shortness of breath?denies.?Wheezing?denies.?Cardiovascular:?Pacemaker?denies.?MVP?denies.?WPW?denies.?CHF?denies.?Heart attack?denies.?Septal defect?denies.?Rapid beat?denies.?Chest pain ?denies.?Atrial Fib.?denies.?Murmur/Palpitations?denies.?Gastrointestinal:?Hemorrhoids?denies.?Stomach/Abdominal pain?denies.?Dark blood stool?denies.?Irritable bowel ?admits.?Constipation?denies.?Diarrhea?denies.?Hematology:?Swelling?denies.?Clots?denies.?Varicose Veins?denies.?Bruising?denies.?Bleeding problem?denies.?Genitourinary:?Blood urine?denies.?Frequent/Painfu/urination/bladder control?denies.?Kidney stones?denies.?Infection (UTI)?denies.?Nephropathy?denies.?sex trans dis (STD)?denies.?Prostate?denies.?Musculoskeletal:?Hammertoes?denies.?Bunions?denies.?Back Pain?denies.?Muscle Cramps/ Resting?admits.?Muscle cramps / walking?denies.?Generalized aches and pains?denies.?Weakness?denies.?Integ.:?Milian?denies.?Scars?denies.?Corns/calluses?denies.?Ingrown nails?denies.?Painful nails?denies.?Open Sores?denies.?Rashes?denies.?Neurologic:?Difficulty sleeping?denies.?Brain disorder?denies.?Numbness?denies.?Balance trouble?denies.?Confusion?denies.?Fainting/blackouts?denies.?Tingling?denies.?Tr emors?denies.? * Medical History:? * Surgical History:? Cyst michael yvonne * Hospitalization/Major Diagno stic Procedure:?Denies Past Hospitalization * Family History:?Mother: dece ased.?Father: .?Siblings: heart attack, diagnosed with Unspecified cerebral artery occlusion with cerebral infarction, Other malignant neoplasm of unspecified site, Unspecified essential hypertension, Unspecified heart disease, Diabetic - NIDDM.? * Social History:?Tobacco Use:?Tobacco Use/Smoking?Are you a:?former [...] Vitamin D amLODIPine Besylate Levothroid Valsartan Allopurinol Taking Simvastatin 20 MG Tablet 1 tablet in the evening Orally Once a dayTaking Prednisone Taking Symbicort Taking Vitamin D Taking amLODIPine Besylate Taking Levothroid Taking Valsartan Taking Allopurinol UnknownLisinopril 10 MG Tablet Orally Once a daySimvastatin [...] Wt:16 0, BMI:28.34, Shoe size:7.5. * Examination: ???Heel Pain: ?INSPECTION:? Pain on Palpation to Plantar Fascia med. and central bands, intrinsic musc., infra-calcaneal bursa, and med calc tubercle , RIGHT foot, No pain: posterior/superior heel, achilles bursa/tendon, sinus tarsi, peroneals, or with lateral heel compression; no limited STJ ROM, calor, or ecchymosis.?X-Rays - IMAGING REPORT: ?Clinical Indication(s):? Evaluate for Fracture, Evaluate Biomechanical Deformity.?Views:? 3 views of Foot, LAT, LO, MO, RIGHT.?Findings:?moderate generalized decrease in bone density , navicular/cuneiform plantar subluxation with anterior cyma line , positive infra-calcaneal exostosis , dorsal degenerative changes of the tarsal joints.?Fracture:?Negative fractures identified.?Orthopedic: ?MUSCLE STRENGTH:?5/5 all groups in a symmetrical fashion , B/L.?GAIT ABNORMALITY:?antalgic.?FOOT MORPHOLOGY:? Pes Planus structure, Decreased Ankle joint dorsiflexion ROM, knee extended , Prominent, painful 1st Met-Cunieform joint without inflammation, B/L, LEFT > RIGHT, Pes Cavus structure.?Neurological: ?SENSORY:?Neurological exam reveals intact sensorium, pain sensation normal, vibration sensation intact, pinprick sensation is normal in the lower extremities, Pt denies, anesthesia, burning, paresthesia, tingling, B/L.?TINEL'S COMPRESSION:?Negative tarsal tunnel, amairani pedis, and medial calcaneal nerves.?General Examination: ?GENERAL APPEARANCE:?Reveals a pleasant, alert, well nourished, well- developed, well hydrated individual, who demonstrates proper attention to hygiene/body habitus, and is in no acute distress, Pt serves as own historian for office visit today.?ORIENTED:?person, place, and time.?Neuroma Pain: ?PALPATION:?No interspace pain noted on palpation.?Vascular: ?DP PULSES:?2/4, B/L.?PT PULSES:?2/4, B/L.?CAPILLARY FILL TIME:?immediate, all digits, B/L.?SKIN TEMPERTURE GRADIENT OF THE LOWER EXTERMITIES:?warm to cool, proximal to distal, B/L.?HAIR GROWTH/TEXTURE/ELASTICITY/TURGOR:?normal, B/L.?PIGMENTATION:?normal, B/L.?EDEMA:?absent, B/L.?Dermatologic: ?SKIN FINDINGS:?Skin exam reveals normal texture, elasticity, and turgor. There are no masses. The interspaces are clear.? * Physical Examination:?L1930 Nightsplint AFO:?Application of static AFO, including soft interface material, adjustable for fit/ positioning/ pressure reduction, may be used for minimal ambulation, prefabricated, including fitting and adjustment:?Medium, Right.? Assessment: * Assessment: 1.?Pain in right foot - M79. 671?2.?Plantar fasciitis of right foot - M72.2, Acute problem, Complicated w/ Multiple Tx Options(4),Dx New problem, Prognosis Uncertain (4)?3.?Calcaneal spur, right foot - M77.31?4.?Interstitial myositis of right foot - M60.171?5.?Bursitis of right foot - M77.51? Plan: * Treatment: 2.?Plantar fasciitis of righ t foot? Start Night Splint AFO - L1930, 1, wear, at rest, 30 days, 1, Refills 0.?? Notes: Patient Educated with: HEEL CORD STRETCHES.pdf (HEEL CORD STRETCHES.pdf) Patient Educated with: RICE THERAPY.pdf (RICE THERAPY.pdf)?? * Procedure Codes:?09896 X-RAY EXAM OF RIGHT FOOT 3V, Modifiers: 26 , [id number] AFO PLASTIC/OTH MATERIAL PREFAB, Modifiers: RT * Preventive Medicine:? ??Counseling:?Discussion:?-04: Office or other outpatient visit for the evaluation and management of a new patient, which required a medically appropriate history and/or examination and MODERATE level of DECISION MAKING for: 1 OR MORE CHRONIC PROBLEM(S) THATS WORSENING, 2 STABLE CHRONIC PROBLEMS, A NEWLY DIAGNOSED PROBLEM WITH UNCERTAIN PROGNOSIS, AN ACUTE COMPLICATED INJURY WITH MULTIPLE TREATMENT OPTIONS, OR AN ACUTE PROBLEM WITH ACCOMPANYING SYSTEMIC SYMPTOMS, THAT POSE(S) A MODERATE RISK OF MORBIDITY. THIS CONDITION MAY ALSO INCLUDE RX DRUG MANAGEMENT, OR A DECISON FOR MINOR SURGERY. The visit on the day of the [...] encouraged the patient to call the office.?Heel pain:?FASCIITIS: I explained to the patient the possible etiologies of Plantar Fasciitis including foot type/shoegear/activity level/exercise routine and the risks/benefits of all the different treatment options for heel pain including: No treatment at all, Rest, Ice, NSAIDs(only if well tolerated after meals), New/supportive Shoegear, Strappings and Tapings, Stretching exercises, Deep Tissue Massage, Heel cups/cushions, Arch support/shoe inserts, Custom orthoses, Topical analgesics including Aspercream/Voltaren gel, Night splint AFO for am stiffness, Cortisone injection therapy, Cast boot with crutches/cane/or walker for assisted ambulation, Physical Therapy, EPAT/ESWT, Interfil injection therapy, as well as surgical Dixie/Endoscopic Fasciitomy surgical procedures if needed. Recommendations were made to limit barefoot walking, eliminate wearing nonsupportive shoegear (i.e. flip-flops or sandals, or a shoe with an easily bendable, foldable, or twistable sole) and wear shoegear with a good solid sole, a supportive arch, and plenty of room for an insert/orthotic if necessary. If wearing sandals was required by the patient, we recommended orthopedic sandals such as Orthoheel or Birkenstock even while in the home. If the patient wore heels in the past, we recommended they continue, but eliminate the use of flats. The advantages and disadvantages of each option were discussed and the patients questions re: types of shoegear, custom vs prefabricated inserts, activity level, PO vs Topical medications (and their respective potential complications/drug interactions/side effects), and consistency in home treatment regimens for optimal success were answered to their satisfaction. Literature detailing plantar fasciitis and the various treatment options were dispensed and reviewed.?Orthotics:?I explained that orthoses are medically necessary to decrease the foot pain through proper mechanical control, support of their foot , decrease stretch/strain on the plantar fascia, Prefabricated orthothes were dispensed. The inserts were comfortably fit to the patients feet in both weight-bearing and non-weight bearing attitudes. The patient was instructed to increase the amount of time they were wearing the inserts, starting with one hour the first day and gradually increasing the amount of time worn until they are using them multimedia engineer and in all activities. They were asked to call the office if any signs of irritation were noted such as redness, blistering or callous formation. Instuctions were given for their usage and proper break-in/wear/care, AFO - I explained to the patient the benefits of AFO use. Recommend AFO Lower Extremity Bracing to accomodate the patients deformity and result in pain relief without surgery, Patient signed confirmation form indicating receipt of DME device, I explained to the patient the benefits of OT use.?P.R.I.C.E.:?The patient was counseled on the use of P.R.I.C.E. and NSAIDS (if well tolerated) to aid in the recovery from their painful condition.?Shoe Gear Counseling:?The patient and I reviewed the types of shoes they should be wearing. My recommendation included obtaining a well-fitted shoe with a good supportive, non-foldable nor twistable sole, plenty of toe/room for the forefoot, and proper arch support. Based on todays examination, I recommended the patient look for new shoes, by having their feet professionally measured. We discussed that generally the best time of the day for a shoe fitting is the afternoon. Different shoes types and brands to best match the patients occupation and vocation were discussed. Specific brand selection will be up to the patient, their individual foot condition/deformities, and fit. The patient and I reviewed the standard new shoe break in period by wearing them for a few hours a day while checking for redness or sores as wear time is increased. The patient verbally confirmed to understanding the information discussed.?Stretching Exercises:?Stretching and deep tissue massage exercises for the patients injury/diagnosis were discussed and demonstrated, handouts were dispensed.? * Follow Up:?4 Weeks * Images: * Sign off status: Completed true * Provider:?Zak Hunt DPM Date:?2022 Generated for Min kim/Katiuska/Ashleighsmitting on:?06/19/2024 08:41 AM EST History and Physical Notes * HPI (History of Present Illness) Category Sub-Category Detail Notes Category Not es Heel pain Duration: 3 months Location: Proximal plantar asp ect of Heel, RIGHT Onset/Cause: unknown , denies tra wallace Aggravated: standing, walking, w alking first thing in the morning/after rest Course: worse Treatments: rest , change in leah es, Tylenol , stretching Physical Examination Category Sub-Category Detail Notes Section Note s L1930 Nightsplint AFO Application of sta tic AFO, including soft interface material, adjustable for fit/ positioning/ pressure reduction, may be used for minimal ambulation, prefabricated, including fitting and adjustment: Medium , Right Examination Category Sub-Category Detail Notes Category Not es Neuroma Pain PALPATION: No interspace pain noted on palpation Neurological SENSORY: Neurological exa m reveals intact sensorium, pain sensation normal, vibration sensation intact, pinprick sensation is normal in the lower extremities, Pt denies, anesthesia, burning, paresthesia, tingling, B/L TINEL'S COMPRESSION: Negative tarsal umu russ, amairani pedis, and medial calcaneal nerves Dermatologic SKIN FINDINGS: Skin exam reveal s normal texture, elasticity, and turgor. There are no masses. The interspaces are clear Orthopedic GAIT ABNORMALITY: antalgic FOOT MORPHOLOGY: Pes Planus structure , Decreased Ankle joint dorsiflexion ROM, knee extended , Prominent, painful 1st Met-Cunieform joint without inflammation, B/L, LEFT > RIGHT, Pes Cavus structure MUSCLE STRENGTH: 5/5 all groups in a symmetrical fashion , B/L General Examination GENERAL APPEARANCE: Reveals a pleasant, alert, well nourished, well-developed, well hydrated individual, who demonstrates proper attention to hygiene/body habitus, and is in no acute distress, Pt serves as own historian for office visit today ORIENTED: person, place, and t rusty Vascular DP PULSES(B): 2/4, B/L PT PULSES(B): 2/4, B/L CAPILLARY FILL TIME: immediate, all digi ts, B/L TEMPERTURE GRADIENT(C): warm to cool, pr oximal to distal, B/L TROPHIC CONDITION-TEXTURE/ELASTICITY/TURGOR/HAIR GROWTH(B): normal, B/L EDEMA(C): absent, B/L PIGMENTATION: normal, B/L X-Rays - IMAGING REPORT Findings: moderate generalized decrease in bone density , navicular/cuneiform plantar subluxation with anterior cyma line , positive infra-calcaneal exostosis , dorsal degenerative changes of the tarsal joints Fracture: Negative fractures i dentified Views: 3 views of Foot, LAT , LO, MO, RIGHT Clinical Indication(s): Evaluate for Fra cture, Evaluate Biomechanical Deformity Heel Pain INSPECTION: Pain on Palpatio n to Plantar Fascia med. and central bands, intrinsic musc., infra-calcaneal bursa, and med calc tubercle , RIGHT foot, No pain: posterior/superior heel, achilles bursa/tendon, sinus tarsi, peroneals, or with lateral heel compression; no limited STJ ROM, calor, or ecchymosis
--- OUTSIDE RECORDS SUMMARY | 2024-06-19 08:41 | XMS_ITS | Patient Health Record ---
Author Organization [facility] Address [address] [place] [address] Care Team Providers Care Contact Finger Assembler Name Role Phone Nicolas Villatoro Primary Care Provider Royer Christopher Unavailable [phone] ALLERGIES Allergen (clinical drug ingredient) Drug/Non Drug Allergy documented on EMR Reaction Allergy Type Onset Date Status ibuprofen Ibuprofen Unknown Drug Allergy Active aspirin Aspirin Unknown Drug Allergy Active #5 yellow dye (uncoded) Unknown Allergy Active Non-steroidal anti-inflammatory agent (FN) NSAIDS (uncoded) Unknown Allergy Active REASON FOR REFERRAL No Information MEDICATIONS Medication SIG (Take, Route, Frequency, Duration) Notes Start Date End Date Status Simvastatin 20 MG 1 tablet in the evening Orally Once a day Active Allopurinol 100 MG 1 tablet Orally Once a day for 30 day(s) Active Valsartan 160 MG 1 tablet Orally Once a day for 30 day(s) Active Levothyroxine Sodium 50 MCG 1 capsule Orally Once a day Active Vitamin D (Cholecalciferol) 25 MCG (1000 UT) 1 capsule Orally Once a day for 30 day(s) Active Prednisone 40 1 tab Oral as needed Not-Taking HYDROcodone Bitartrate ER 10 MG 1 capsule Orally every 12 hrs as needed Active metroNIDAZOLE 0.75 % 1 application to affected area Externally prn Active Cetirizine HCl 10 MG 1 tablet Orally Onc e a day for 30 day(s) Active Citrucel 500 MG 4 tablets as needed Orally prn Active Symbicort 80-4.5 MCG/ACT 1 puff as needed Inhalation every 4 hrs Active amLODIPine Besylate 5 MG 1 tablet Orally Once a day Active Flonase 50 MCG/ACT 1 spray in each nostril Nasally Once a day Active Fluocinolone Acetonide 0.01 % 5 drops into affected ear Otic Twice a day/prn Active Timolol Maleate 0.5 % 1 tablet with food Ophthalmic Twice a day Active Latanoprost 0.005 % 1 drop into affected eye in the evening Ophthalmic Once a day Active IMMUNIZATIONS Vaccine Route Administration Date Status Comme nts Influenza Unknown 05/11/2018 Administered Influenza Unknown 05/25/2023 Administered SOCIAL HISTORY Sex Assigned At : Social History Observation Description Sex Assigned At Unknown PROBLEMS Problem Type ICD Code Onset Dates Problem Status W/U Status Risk SNOMED Code Notes Problem Encounter for screening for malignant neoplasm of colon (Z12.11) Active confirmed 507222154 Problem History of adenomatous polyp of colon (Z86.010) Active confirmed 820372378 Problem Irritable bowel syndrome with diarrhea (K58.0) Active confirmed Irritable bowel syndrome with diarrhea (071882460) Problem Diarrhea, unspecified type (R19.7) Active confirmed 92099650 VITAL SIGNS Temperature 97.3 degrees Fahrenheit 03/08/2024 Blood pressure diastolic 00 mm Hg 03/08/2024 Height 64 in 03/08/2024 Blood pressure systolic 000 mm Hg 03/08/2024 Weight 164 lb 6 oz lbs 03/08/2024 BMI 28.21 kg/m2 03/08/2024 Encounters Encounter Location Date Provider Diagnosis [facility] Outpatient [address], [place] [id number] 06/19/2024 Royer Lino [facility] [address] [place] [address] 03/08/2024 Royer Lino History of adenomatous polyp of colon Z86.010 ; Irritable bowel [...] colon (ICD-10 - Z12.11) PLAN OF TREATMENT Pending Test Test Name Order Date CELIAC PANEL #10 01/30/2014 CELIAC PANEL #10 02/01/2019 Future Test Test Name Order Date COLONOSCOPY 01/30/2014 COLONOSCOPY 02/01/2019 COLONOSCOPY 03/08/2024 Next Appt Details Provider Name:Royer Lino , 06/19/2024 10:30:00 AM, [address] [place] [address] , [place], [place], [phone], Insurance Providers Payer Name Payer Address Payer Phone Subscriber Number Group Number Insured Name Patient Relationship to Insured Coverage Start Date Coverage End Date MEDICARE OF [place] [address] [place] [address] [id number] RANJANA MISHRA Self - patient is the insured [employer] ATT[employer] CLAIMS [address] [place] [address] [id number] RANJANA MISHRA Self - patient is the insured MEDICAL (GENERAL) HISTORY Medical History History ICD Code Denies [place],DM,CVA,renal disease Hypertension Neg screening colonoscopy in 09/2002; Colonoscopy 04/2014-1 small tubular adenoma removed, no IBD, bx neg for microscopic colitis Hyperlipidemia Glaucoma Acne rosacea Raynaud's syndrome Gout Mild asthma Negative colonoscopy in 05/2019 IBS with intermittent diarrh ea. She had colon biopsies negative for microscopic colitis in 2013 and negative laboratories for celiac disease in 2018 Surgical History Surgery Date(Month/Year) Sebaceous cyst removal Bilateral cataract surgery
[2024-06-19 09:00] VITALS: BMI 27.1
[2024-06-19] MEDS: Lactated Ringers 1,000 ML 100 ML IVCONT (09:04)
[2024-06-19 09:11] VITALS: BP 133/62; PULSE 53; RESP 18; TEMP 36.6; O2SAT 98
[2024-06-19 11:20] VITALS: BP 108/48; PULSE 58; RESP 17; TEMP 36.7; O2SAT 98
--- NOTE | 2024-06-19 11:22 | PM.OP ---
Brief Operative Note Date of Service: 06/19/24 Pre-op diagnosis: Screening Post-op diagnosis: other (Diverticulosis) Procedure: Colonoscopy to the cecum Surgeon: Royer Lino MD Anesthesia: MAC Was an Material Manager used for this Procedure?: No Estimated blood loss (mL): 0 Pathology: none sent Condition: stable Disposition: PACU
[2024-06-19 11:35] VITALS: BP 120/61; PULSE 58; RESP 18; TEMP 36.6; O2SAT 99
--- NOTE | 2024-06-19 14:38 | OP_ITS ---
DATE OF SERVICE: 06/19/2024 SURGEON: Royer Lino MD INDICATIONS: The patient presents for evaluation of personal history of tubular adenoma of the colon and colorectal cancer screening. Full consent has been obtained from her for this, including risks of bleeding and perforation. PREOPERATIVE DIAGNOSIS: POSTOPERATIVE DIAGNOSIS: PROCEDURE PERFORMED: Colonoscopy to the cecum. ESTIMATED BLOOD LOSS: COMPLICATIONS: ANESTHESIA: Monitored anesthesia care. ASSISTANTS: SPECIMENS: PREOPERATIVE DIAGNOSES: Colorectal cancer screening and personal history of tubular adenoma of the colon. POSTOPERATIVE DIAGNOSES: Colorectal cancer screening and personal history of tubular adenoma of the colon, diverticulosis, and internal hemorrhoids. DESCRIPTION OF PROCEDURE: The patient was placed in the left lateral decubitus position. The digital rectal exam revealed no abnormalities. The Olympus video pediatric colonoscope was entered into the rectum and advanced easily to the cecum. Once in the cecum, I did identify normal-appearing cecal pouch with appendiceal orifice and a normal-appearing ileocecal valve. There was transillumination of light deep in the right lower quadrant. The entire cecum and ileocecal valve appeared normal. The scope was slowly withdrawn assessing all mucosal surfaces carefully. Preparation was excellent. I did not visualize any sign of polyps, colitis, nor angiodysplasia. There was a mild amount of sigmoid diverticulosis. In the rectum, scope was retroflexed visualizing small internal hemorrhoids, but no other pathology. The rectal mucosa appeared normal. The scope was straightened and withdrawn from the patient. She tolerated the procedure well and was returned to the recovery area in stable condition. IMPRESSION: 1. Diverticulosis. 2. Internal hemorrhoids. PLAN: Given her age and this negative exam, I do not think she would need any further screening colonoscopies. She will otherwise see me on a p.r.n. basis. This has been discussed with her . MD YEMI Lainez/MELVI / [id number]
== END 2024-06-19 12:14 | disposition home or self-care (01) ==
PROVIDERS: PCP Family Medicine; Visit Provider Internal Medicine
PROC: 0DJD8ZZ Inspection of Lower Intestinal Tract, Via Natural or Artificial Opening Endoscopic (ICD-10-PCS; CPT 45378; principal; 2024-06-19 10:30)
DX: Z12.11 Encounter for screening for malignant neoplasm of colon (principal); K57.30 Diverticulosis of large intestine without perforation or abscess without bleeding; K64.8 Other hemorrhoids; Z86.0101 Personal history of adenomatous and serrated colon polyps; I10 Essential (primary) hypertension; E78.5 Hyperlipidemia, unspecified; J45.909 Unspecified asthma, uncomplicated; K58.9 Irritable bowel syndrome, unspecified; I73.00 Raynaud's syndrome without gangrene; Z79.02 Long term (current) use of antithrombotics/antiplatelets; Z79.899 Other long term (current) drug therapy
CPT/HCPCS: G0105; J2003; J2704